=== PATIENT | female | born 1985 | race Caucasian/White ===

== ENCOUNTER 2016-07-21 10:27 | Emergency (ER) | payer OTHER ==
[~2016-07-21] VITALS: Wt 64.0 kg
[~2016-07-21 10:27] MED LIST: BENZ100C70 PO; CYCL-319 PO; FLUC150T17 PO; HYDR-3498 PO; IBUP-1542 PO; NAPR-260 PO; NAPR-688 PO
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
[2016-07-21 11:27] LABS: URINE BLOOD (Dip) POC Negative (NEGATIVE)
[2016-07-21] MEDS ORDERED: IBUPROFEN 600 MG TAB PO ONE (11:30)
--- NOTE | 2016-07-21 12:22 | RADRPT ---
PROCEDURE: XR thoracic spine. CLINICAL INDICATION: Back pain TECHNIQUE: AP and lateral radiographs of the thoracic spine are available for review. COMPARISON: None. FINDINGS: . The thoracic spine is normal in mineralization, architecture and alignment. No fractures or osseous lesions are identified. The disk spaces are unremarkable. The soft tissues are unremarkable. IMPRESSION: Unremarkable examination. RPTAT: HGDB .Hiram Timmons MD, MD Date Time Electronically viewed and signed by .Hiram Timmons MD, on 07/21/2016 12:21 .B/
[2016-07-21] MEDS ORDERED: NAPR-260 PO (12:44)
== END 2016-07-21 12:48 | disposition home or self-care (01) ==
LOC: FTE 10:27
DX: M54.6 Pain in thoracic spine (principal)
CPT/HCPCS: 72072; 81003; Z7610

== ENCOUNTER 2016-12-20 00:08 | Emergency (ER) | payer OTHER ==
[~2016-12-20] VITALS: Ht 160 cm; Wt 65.5 kg
[2016-12-20 00:12] VITALS: Ht 160 cm; Wt 65.5 kg
[2016-12-20] MEDS ORDERED: CYCLOBENZAPRINE 10 MG TAB PO ONE (02:30)
[2016-12-20 03:01] LABS: URINE BLOOD (Dip) POC Negative (NEGATIVE)
--- NOTE | 2016-12-20 03:26 | ERD ---
ER Documentation Chief Complaint Date/Time DATE: 12/20/16 TIME: 03:26 Chief Complaint BACK PAIN X 3 WEEKS; NO INJURY REPORTED; CONSTIPATION; HX OF FIBROIDS HPI 31-year-old female back pain for 3 weeks. No injury noted. She says she hurt when she bent over. No fevers no chills. No nausea or vomiting. No bowel or bladder incontinence. No other current complaints. Pain is mild to moderate in sensation ROS All systems reviewed and are negative except as per history of present illness. Medications Home Meds Active Scripts Naproxen* (Naprosyn*) 500 Mg Tablet, 500 MG PO BID Y for PAIN AND/OR INFLAMMATION, #30 TAB Prov:SKYLA SHERMAN PA-C 07/21/16 Naproxen* (Naprosyn*) 500 Mg Tablet, 500 MG PO BID, #20 TAB Prov:ALBER GUERRERO 03/19/16 Benzonatate* (Tessalon Perle*) 100 Mg Capsule, 100 MG PO TID, #20 CAP Prov:ALBER GUERRERO 03/19/16 Ibuprofen* (Motrin*) 600 Mg Tab, 600 MG PO Q6, #20 TAB Prov:LATOYA PARRISH PA-C 01/17/16 Cyclobenzaprine Hcl* (Cyclobenzaprine Hcl*) 10 Mg Tablet, 10 MG PO TID, #15 TAB Prov:RALPH MEAD PA-C 07/25/15 Naproxen* (Naproxen*) 500 Mg Tablet, 500 MG PO BID Y for PAIN, #30 TAB Prov:RALPH MEAD PA-C 07/25/15 Hydrocodone Bit-Acetaminophen* ([place]*) 5-325 Mg Tab, 1 TAB PO Q6 Y for PAIN, # 7 TAB Prov:RALPH MEAD PA-C 07/25/15 Fluconazole* (Diflucan*) 150 Mg Tablet, 150 MG PO ONCE, #1 TAB Prov:LATOYA PARRISH PA-C 07/20/15 Allergies Allergies: Coded Allergies: No Known Allergy (Unverified , 07/25/15) PMhx/Soc History of Surgery: No Anesthesia Reaction: No Hx Neurological Disorder: No Hx Respiratory Disorders: No Hx Cardiac Disorders: No Hx Miscellaneous Medical Probl: No Hx Alcohol Use: No Hx Substance Use: No Hx Tobacco Use: No Physical Exam Vitals Vital Signs Date Time Temp Pulse Resp B/P Pulse Ox O2 Delivery O2 Flow Rate FiO2 12/20/16 00:12 95.4 72 20 115/68 100 Physical Exam Const: [] Head: Atraumatic Eyes: Normal Conjunctiva ENT: Normal External Ears, Nose and Mouth. Neck: Full range of motion..~ No meningismus. Resp: Clear to auscultation bilaterally Cardio: Regular rate and rhythm, no murmurs Abd: Soft, non tender, non distended. Normal bowel sounds Skin: No petechiae or rashes Back: No midline or flank tenderness Ext: No cyanosis, or edema Neur: Awake and alert Psych: Normal Mood and Affect Results 24 hrs Laboratory Tests Test 12/20/16 03:05 Bedside Urine pH (LAB) 5.5 Bedside Urine Protein (LAB) Negative Bedside Urine Glucose (UA) Negative Bedside Urine Ketones (LAB) Negative Bedside Urine Blood Negative Bedside Urine Nitrite (LAB) Negative Bedside Urine Leukocyte Esterase (L Negative Current Medications Medications (Trade) Dose Ordered Sig/Nisha Route PRN Reason Start Time Stop Time Status Last Admin Dose Admin Cyclobenzaprine HCl (Flexeril) 10 mg ONCE ONCE PO 12/20/16 02:30 12/20/16 02:31 DC 12/20/16 02:50 Procedures/MDM Patient's musculoskeletal symptoms have stabilized while they have been evaluated in the department and are appropriate for outpatient work up. No evidence of cauda equina, cord compression, infiltrative, or infectious etiology. X-ray LS-Spine 3V Interpreted by me: Bones: No fracture, or lytic lesions Joints: No dislocation Foreign body: None Departure Diagnosis: Primary Impression: Back pain Back pain location: low back pain Chronicity: acute Back pain laterality: midline Sciatica presence: without sciatica Qualified Code: M54.5 - Acute midline low back pain without sciatica Condition: Stable BARRERA TORREZ Dec 20, 2016 03:26
[2016-12-20] MEDS ORDERED: CYCL-319 PO (03:36)
[2016-12-20 04:32] VITALS: BP 129/87; PULSE 84; RESP 18
--- NOTE | 2016-12-20 04:50 | RADRPT ---
PROCEDURE: XR Lumbar Spine. CLINICAL INDICATION: Pain. TECHNIQUE: X-ray of the lumbar spine were performed including AP, lateral, and coned L5-S1 views w as performed. COMPARISON: No prior studies are available for comparison. FINDINGS: Vertebral body stature and alignment maintained. There is no evidence of fracture or subluxation. IMPRESSION: No evidence of compression fracture. RPTAT: HIKT .Milo Escobar MD, MD Date Time Electronically viewed and signed by .Milo Escobar MD, on 12/20/2016 04:49 .T/
== END 2016-12-20 04:33 | disposition home or self-care (01) ==
LOC: E/R 00:08
DX: M54.5 Low back pain (principal)
CPT/HCPCS: 72100; 81003; Z7502; Z7610

== ENCOUNTER 2017-04-05 20:34 | Emergency (ER) | payer OTHER ==
[~2017-04-05] VITALS: Ht 157.5 cm; Wt 66.0 kg
[2017-04-05 20:42] VITALS: Ht 157.5 cm; Wt 66.0 kg
[2017-04-05] MEDS ORDERED: KETOROLAC 30 MG INJ IV STA (22:33)
--- NOTE | 2017-04-05 23:40 | RADRPT ---
PROCEDURE: US Pelvis CLINICAL INDICATION: Pain. TECHNIQUE: Sonographic evaluation of the pelvis was performed utilizing both transabdominal and tr ansvaginal technique. Images were reviewed on the high-resolution PACS workstation. COMPARISON: 03/19/2016 FINDINGS: Uterus is mildly prominent measuring 8.3 x 5 x 8.1 cm. There is partially calcified mass compatible with a fibroid in the left lateral myometrium there is a 2.4 x 1.8 x 1.4 cm. The endometrium is thin and normal measuring 9.8 mm in diameter. The right ovary measures 2.8 x 1.5 x 1.7 cm. The left ovary measures 4.1 x 1.8 x 2.4 cm. The ovari es are symmetric in size, echogenicity, and morphology. Color doppler vascular flow is demonstrated to both ovaries. There are no adnexal masses. There is no free fluid in the pelvis. IMPRESSION: 1. Primary uterus is redemonstrated fibroid within the left lateral uterine body, mildly increased in size. 2. Normal endometrium. 3. Normal examination of the ovaries. RPTAT: HMVK .Dhruv Guerrero MD, MD Date Time Electronically viewed and signed by .Dhruv Guerrero MD, MD on 04/05/2017 23:40 .K/
[2017-04-05] MEDS ORDERED: NAPR-260 PO (23:55)
--- NOTE | 2017-04-05 23:55 | ERD ---
ER Documentation Chief Complaint Chief Complaint Pelvic pain, left-sided, x 2 days HPI The patient is a 31-year-old female who presents to the Emergency Department with complaint of left-sided pelvic pain for the past 2 days. The patient reports that her pain was [id number], and constant since initial presentation. It is aching in nature. She denies any exacerbating or alleviating factors. Denies fevers, sweats, chills, nausea, vomiting, diarrhea. Denies vaginal bleeding or new vaginal discharge. Denies dysuria, hematuria, flank pain, polyuria. Denies any trauma to the area, or foreign body insertion. Last menstrual period was 15 days ago, and normal. Patient notes a history of similar symptoms in the past, which she was advised is secondary to fibroid. However, she has not had the pain for some time, and therefore presents today for evaluation. ROS All systems reviewed and are negative except as per history of present illness. Medications Home Meds Active Scripts Loratadine* (Loratadine*) 10 Mg Tablet, 10 MG PO DAILY, #30 TAB Prov:GWYN JURADO PA-C 04/05/17 Fluticasone Propionate (Flonase Allergy Relief) 9.9 Ml [place].susp, 1 SPRAY NASAL DAILY, #1 BOTTLE TO EACH NOSTRIL Prov:GWYN JURADO PA-C 04/05/17 Naproxen* (Naprosyn*) 500 Mg Tablet, 500 MG PO BID Y for PAIN AND/OR INFLAMMATION, #30 TAB Prov:GWYN JURADO PA-C 04/05/17 Cyclobenzaprine Hcl* (Cyclobenzaprine Hcl*) 10 Mg Tablet, 10 MG PO TID, #15 TAB Prov:BARRERA TORREZ 12/20/16 Naproxen* (Naprosyn*) 500 Mg Tablet, 500 MG PO BID Y for PAIN AND/OR INFLAMMATION, #30 TAB Prov:SKYLA SHERMAN PA-C 07/21/16 Naproxen* (Naprosyn*) 500 Mg Tablet, 500 MG PO BID, #20 TAB Prov:ALBER GUERRERO 03/19/16 Benzonatate* (Tessalon Perle*) 100 Mg Capsule, 100 MG PO TID, #20 CAP Prov:ALBER GUERRERO 03/19/16 Ibuprofen* (Motrin*) 600 Mg Tab, 600 MG PO Q6, #20 TAB Prov:LATOYA PARRISH PA-C 01/17/16 Cyclobenzaprine Hcl* (Cyclobenzaprine Hcl*) 10 Mg Tablet, 10 MG PO TID, #15 TAB Prov:RALPH MEAD PA-C 07/25/15 Naproxen* (Naproxen*) 500 Mg Tablet, 500 MG PO BID Y for PAIN, #30 TAB Prov:RALPH MEAD PA-C 07/25/15 Hydrocodone Bit-Acetaminophen* ([place]*) 5-325 Mg Tab, 1 TAB PO Q6 Y for PAIN, # 7 TAB Prov:RALPH MEAD PA-C 07/25/15 Fluconazole* (Diflucan*) 150 Mg Tablet, 150 MG PO ONCE, #1 TAB Prov:LATOYA PARRISH PA-C 07/20/15 Allergies Allergies: Coded Allergies: No Known Allergy (Unverified , 07/25/15) PMhx/Soc History of Surgery: Yes (c/s x 2) Anesthesia Reaction: No Hx Neurological Disorder: No Hx Respiratory Disorders: No Hx Cardiac Disorders: No Hx Miscellaneous Medical Probl: Yes (fibroids) Hx Alcohol Use: No Hx Substance Use: No Hx Tobacco Use: No Smoking Status: Never smoker Physical Exam Vitals Vital Signs Date Time Temp Pulse Resp B/P Pulse Ox O2 Delivery O2 Flow Rate FiO2 04/06/17 00:30 97.9 73 17 100/60 99 Room Air 04/05/17 20:42 97.0 77 20 119/64 100 Physical Exam GENERAL: Well-developed, well-nourished, in no acute distress. HEENT: Head is normocephalic, atraumatic. No scleral pallor or icterus. Conjunctiva pink. Moist mucous membranes. NECK: Supple. RESPIRATORY: Lungs are clear to auscultation bilaterally. Equal breath sounds. Normal expiratory effort. CARDIOVASCULAR: Regular rate and rhythm. S1 and S2 normal. GASTROINTESTINAL: Abdomen is soft, nontender, and nondistended. No guarding, no rebound tenderness. Normal bowel sounds. FLANK: No CVA tenderness. BACK: No midline tenderness. GENITOURINARY: Normal external genitalia. No abnormal discharge, no bleeding. No lesions. EXTREMITIES: No clubbing, cyanosis, or edema. Normal skin perfusion. Moving all extremities. No focal swelling or erythema. Distal pulses are palpable, 2+ bilaterally. Capillary refill is less than 2 seconds. NEUROLOGIC: The patient is alert, awake, and oriented x 3. INTEGUMENT: Skin is clean, dry and intact. No rashes, lesions or petechiae present. PSYCHIATRIC: Appropriate; Cooperative. Result Diagram: 04/05/17223904/05/172239 Results 24 hrs Laboratory Tests Test 04/05/17 22:40 White Blood Count 9.810^3/ul Red Blood Count 4.4410^6/ul Hemoglobin 12.0g/dl Hematocrit 38.9% Mean Corpuscular Volume 87.6fl Mean Corpuscular Hemoglobin 27.0pg Mean Corpuscular Hemoglobin Concent 30.8g/dl Red Cell Distribution Width 13.4% Platelet Count 01040^3/UL Mean Platelet Volume 11.8fl Neutrophils % 74.9% Lymphocytes % 16.6% Monocytes % 6.0% Eosinophils % 1.7% Basophils % 0.4% Nucleated Red Blood Cells % 0.0/100WBC Neutrophils # 7.410^3/ul Lymphocytes # 1.610^3/ul Monocytes # 0.610^3/ul Eosinophils # 0.210^3/ul Basophils # 0.010^3/ul Nucleated Red Blood Cells # 0.010^3/ul Prothrombin Time 11.9Sec Prothrombin Time Ratio 0.9 INR International Normalized Ratio 0.88 Activated Partial Thromboplast Time 27.7Sec Urine Color STRAW Urine Clarity CLEAR Urine pH 5.0 Urine Specific [place] 1.006 Urine Ketones NEGATIVEmg/dL Urine Nitrite NEGATIVEmg/dL Urine Bilirubin NEGATIVEmg/dL Urine Urobilinogen NEGATIVEmg/dL Urine Leukocyte Esterase NEGATIVELeu/ul Urine Hemoglobin NEGATIVEmg/dL Urine Glucose NEGATIVEmg/dL Urine Total Protein NEGATIVEmg/dl Sodium Level 142mmol/L Potassium Level 3.9mmol/L Chloride Level 105mmol/L Carbon Dioxide Level 28mmol/L Anion Gap 13 Blood Urea Nitrogen 10mg/dl Creatinine 0.77mg/dl Glucose Level 95mg/dl Calcium Level 9.3mg/dl Total Bilirubin 0.1mg/dl Direct Bilirubin 0.00mg/dl Indirect Bilirubin 0.1mg/dl Aspartate Amino Transf (AST/SGOT) 21IU/L Alanine Aminotransferase (ALT/SGPT) 37IU/L Alkaline Phosphatase 74IU/L Total Protein 8.3g/dl Albumin 4.4g/dl Globulin 3.90g/dl Albumin/Globulin Ratio 1.12 Lipase 130U/L Current Medications Medications (Trade) Dose Ordered Sig/Nisha Route PRN Reason Start Time Stop Time Status Last Admin Dose Admin Ketorolac Tromethamine (Toradol) 30 mg ONCE STAT IV 04/05/17 22:33 04/05/17 22:35 DC 04/05/17 23:16 Procedures/MDM DIAGNOSTIC TESTS AND INTERPRETATION: PROCEDURE: US Pelvis CLINICAL INDICATION: Pain. TECHNIQUE: Sonographic evaluation of the pelvis was performed utilizing both transabdominal and transvaginal technique. Images were reviewed on the high- resolution PACS workstation. COMPARISON: 03/19/2016 FINDINGS: Uterus is mildly prominent measuring 8.3 x 5 x 8.1 cm. There is partially calcified mass compatible with a fibroid in the left lateral myometrium there is a 2.4 x 1.8 x 1.4 cm. The endometrium is thin and normal measuring 9.8 mm in diameter. The right ovary measures 2.8 x 1.5 x 1.7 cm. The left ovary measures 4.1 x 1.8 x 2.4 cm. The ovaries are symmetric in size, echogenicity, and morphology. Color doppler vascular flow is demonstrated to both ovaries. There are no adnexal masses. There is no free fluid in the pelvis. IMPRESSION: 1. Primary uterus is redemonstrated fibroid within the left lateral uterine body, mildly increased in size. 2. Normal endometrium. 3. Normal examination of the ovaries. .Dhruv Guerrero MD, MD Date Time Electronically viewed and signed by .Dhruv Guerrero MD, on 04/05/2017 23:40 EMERGENCY DEPARTMENT COURSE: The patient was stable throughout the ED course. IV access established by nursing staff. Laboratory testing and ultrasound imaging performed. Toradol administered. On reevaluation, the patient reports no new complaints, and resolution of pain. MEDICAL DECISION MAKING: This is a 31-year-old female presenting to the Emergency Department with left-sided pelvic pain. She had no significant abnormalities noted on physical examination, and vital signs were stable. Abdominal examination benign, with no peritoneal signs. No abnormal vaginal bleeding, lesions or discharge was noted. The differential diagnosis includes, but is not limited to, ectopic , endometritis, PID, TOA, cervicitis, endometriosis, dysmenorrhea, hemorrhage/rupture of ovarian cyst, adnexal torsion , ovarian torsion, mittelschmerz, vaginitis, vaginosis, trichomonas, cystitis, pyelonephritis, ureterolithiasis, gastroenteritis, appendicitis, bowel obstruction, diverticulitis, IBD, IBS, hernia, AAA, ischemic bowel. No significant laboratory abnormalities were noted. Ultrasound performed revealed a partially calcified mass, compatible with a fibroid, in the left lateral myometrium there is a 2.4 x 1.8 x 1.4 cm. Otherwise, ovaries were normal, with normal color doppler vascular flow demonstrated. No adnexal masses. No free fluid. The patient's condition improved during their stay after the administration of medications and serial evaluations with stable vital signs. On re-evaluation, the patient reports no new complaints. Upon my review and interpretation of the patient's presentation, clinical data, and overall ER course, I believe the patient's symptoms are most consistent with pelvic pain, likely secondary to fibroid. At this time, the patient is in stable condition and therefore can be discharged home with prescription for Naproxen and strict return precautions for signs of deteriorating or worsening condition. Patient also requested a medication refill of her Flonase and Loratadine, which will be provided. The patient is advised to follow up with her primary medical provider within 2- 3 days for reevaluation and further management, or return to the ER sooner for any new or worsening symptoms. I shared all laboratory and diagnostic imaging studies with the patient at length and in great detail, and the patient verbally understands and agrees with the plan for further observation and care as an outpatient. At the time of discharge, all questions were answered. Departure Diagnosis: Primary Impression: Pelvic pain Additional Impressions: Fibroids Uterine leiomyoma location: unspecified location Qualified Code: D25.9 - Uterine leiomyoma, unspecified location Encounter for medication refill Condition: Stable Patient Instructions: Pelvic Pain, Unknown Cause, Taking Medicine Safely, Uterine Fibroids, What Are Fibroids? Additional Instructions: Follow up with your CERTIFIED SURGICAL TECHNOLOGIST in 2-3 days for reevaluation and further management. Please bring a copy of your results. Return to the ED for any new or worsening symptoms. GWYN JURADO PA-C Apr 05, 2017 23:55
[2017-04-05] MEDS ORDERED: FLUT9.9S NASAL (23:56)
[2017-04-05] MEDS ORDERED: LORA10TA3 PO (23:56)
[2017-04-06 00:30] VITALS: BP 100/60; PULSE 73; RESP 17; TEMP 97.9
== END 2017-04-06 00:30 | disposition home or self-care (01) ==
LOC: FTE 20:34
DX: D25.9 Leiomyoma of uterus, unspecified (principal); Z76.0 Encounter for issue of repeat prescription
CPT/HCPCS: 36415; 76856; 80053; 81003; 83690; 85025; 85610; 85730; 87086; 96374; J1885; Z7502

== ENCOUNTER 2017-08-08 09:48 | Emergency (ER) | END 2017-08-08 13:03 | disposition home or self-care (01) ==

== ENCOUNTER 2017-10-13 19:19 | Emergency (ER) | END 2017-10-13 21:26 | disposition home or self-care (01) ==

== ENCOUNTER 2018-04-23 06:33 | Emergency (ER) | END 2018-04-23 09:57 | disposition home or self-care (01) ==

== ENCOUNTER 2018-09-18 13:06 | Emergency (ER) | payer OTHER ==
[~2018-09-18] VITALS: Ht 167.6 cm; Wt 70.2 kg
[~2018-09-18 13:06] MED LIST changes: -BENZ100C70 PO; -CYCL-319 PO; -FLUC150T17 PO; -HYDR-3498 PO; -IBUP-1542 PO; +IBUP800T48 PO; -NAPR-260 PO; -NAPR-688 PO
[2018-09-18 13:09] VITALS: BP 130/76; PULSE 76; RESP 18; Ht 167.6 cm; Wt 70.2 kg
[2018-09-18] MEDS ORDERED: IBUPROFEN 800 MG TAB PO ONE (14:00)
[2018-09-18] MEDS ORDERED: NAPR-985 PO (14:14)
--- NOTE | 2018-09-18 14:28 | ERD ---
ER Documentation Chief Complaint Chief Complaint R.arm/shoulder pain x 1 week post moving heavy patient HPI 33-year-old female presenting with right arm pain. Patient had this pain for the last week and is after she moved a heavy item at home. Patient is right- hand dominant. Pain is located over the lateral portion of the elbow. There is no pain with movement. Denies other medical problems. NKDA. Surgical history . Social history denies ROS All systems reviewed and are negative except as per history of present illness. Medications Home Meds Active Scripts Naproxen* (Naprosyn*) 500 Mg Tablet, 500 MG PO BID PRN for PAIN AND/OR INFLAMMATION, #30 TAB Prov:RALPH MEAD PA-C 09/18/18 Ibuprofen* (Motrin*) 800 Mg Tab, 800 MG PO Q6H PRN for PAIN AND OR ELEVATED TEMP, #30 TAB Prov:SALVADOR CODY MD 07/17/18 Allergies Allergies: Coded Allergies: No Known Allergy (Unverified , 07/17/18) PMhx/Soc History of Surgery: Yes (c/s x 2) Anesthesia Reaction: No Hx Neurological Disorder: No Hx Respiratory Disorders: No Hx Cardiac Disorders: No Hx Psychiatric Problems: No Hx Miscellaneous Medical Probl: Yes (fibroids) Hx Alcohol Use: No Hx Substance Use: No Hx Tobacco Use: No Smoking Status: Never smoker FmHx Family History: No diabetes, No coronary disease, No other Physical Exam Vitals Vital Signs Date Temp Pulse Resp B/P (MAP) Pulse Ox O2 O2 Flow FiO2 Time Delivery Rate 09/18/18 98.0 76 18 130/76 99 13:09 (94) Physical Exam GENERAL: The patient is well-appearing, well-nourished, in no acute distress CHEST: Clear to auscultation bilaterally. There are no rales, wheezes or rhonchi. HEART: Regular rate and rhythm. No murmurs, clicks, rubs or gallops. EXTREMITIES:TTP to right elbow. No deformity. Normal ROM. Strength 5/5 NEUROLOGIC: Alert and oriented. Cranial nerves II through XII intact. Motor strength in all 4 extremities with 5 out of 5 strength. Sensation grossly intact. Normal speech and gait. SKIN: There is no apparent rash or petechiae. The skin is warm and dry. Results 24 hrs Current Medications Medications Dose Sig/Nisha Start Time Status Last (Trade) Ordered Route PRN Stop Time Admin Dose Reason Admin Ibuprofen 800 mg ONCE ONCE 09/18/18 DC 09/18/18 (Motrin) PO 14:00 13:39 09/18/18 14:01 Procedures/MDM DIAGNOSTIC IMAGING REPORT Patient: SHRUTHI GARCES : 1985 Age: 33 Sex: F MR #: [id number] DOS: 09/18/18 1332 Ordering MD: BRANDO MEAD PA-C Location: [facility] Room/Bed: PROCEDURE: XR Right Elbow. CLINICAL INDICATION: Pain TECHNIQUE: AP, lateral and oblique views of the right elbow performed. COMPARISON: None. FINDINGS: There is normal mineralization and alignment. No fracture or osseous lesion is identified. There is no significant joint space narrowing. The soft tissues are unremarkable. IMPRESSION: Unremarkable examination. DIAGNOSTIC IMAGING REPORT Patient: SHRUTHI GARCES : 1985 Age: 33 Sex: F MR #: [id number] DOS: 09/18/18 1332 Ordering MD: BRANDO MEAD PA-C Location: [facility] Room/Bed: PROCEDURE: XR right shoulder. CLINICAL INDICATION: Panel TECHNIQUE: AP Internal and external rotation views and transscapular Y-view of the right shoulder were performed. COMPARISON: None. FINDINGS: There is normal osseous mineralization and alignment. No acute fracture or osseous lesion is identified. There are normal joints without evidence of arthritis or dislocation. The soft tissues are unremarkable. IMPRESSION: Unremarkable right shoulder. MDM: 33-year-old female presenting with pain to right elbow. Patient's x-rays are within normal limits. Patient likely has muscular skeletal strain with tendinitis. Patient is recommended to refrain from excessive lifting and moving. Patient is discharged with supportive medications. All questions answered at discharge Departure Diagnosis: Primary Impression: Epicondylitis, lateral Condition: Stable Patient Instructions: Muscle Strain, Extremity, Tendonitis Referrals: COMMUNITY CLINICS YOU HAVE RECEIVED A MEDICAL SCREENING EXAM AND THE RESULTS INDICATE THAT YOU DO NOT HAVE A CONDITION THAT REQUIRES URGENT TREATMENT IN THE EMERGENCY DEPARTMENT. FURTHER EVALUATION AND TREATMENT OF YOUR CONDITION CAN WAIT UNTIL YOU ARE SEEN IN YOUR DOCTORS OFFICE WITHIN THE NEXT 1-2 DAYS. IT IS YOUR RESPONSIBILITY TO MAKE AN APPOINTMENT FOR FOLOW-UP CARE. IF YOU HAVE A PRIMARY DOCTOR --you should call your primary doctor and schedule an appointment IF YOU DO NOT HAVE A PRIMARY DOCTOR YOU CAN CALL OUR PHYSICIAN REFERRAL HOTLINE AT IF YOU CAN NOT AFFORD TO SEE A PHYSICIAN YOU CAN CHOSE FROM THE FOLLOWING [facility] CLINICS [facility] [address] [facility] [address] [facility] [address] [facility] [address] [facility]. [facility] [address] [facility]. [facility]. [address] Additional Instructions: FOLLOW UP WITH YOUR PRIMARY CARE PHYSICIAN TOMORROW.Return to this facility if you are not improving as expected. RALPH MEAD PA-C Sep 18, 2018 14:28
== END 2018-09-18 14:35 | disposition home or self-care (01) ==
LOC: FTE 13:06
DX: M77.11 Lateral epicondylitis, right elbow (principal)
CPT/HCPCS: 73030; 73080; Z7502; Z7610

== ENCOUNTER 2018-11-05 13:02 | Emergency (ER) | payer OTHER ==
[~2018-11-05] VITALS: Wt 75.0 kg
[~2018-11-05 13:02] MED LIST changes: +NAPR-985 PO
[2018-11-05 13:06] VITALS: BP 127/80; PULSE 69; RESP 18
[2018-11-05] MEDS ORDERED: IBUP-1542 PO (14:58)
[2018-11-05] MEDS ORDERED: IBUPROFEN 800 MG TAB PO ONE (15:00)
--- NOTE | 2018-11-05 15:01 | ERD ---
ER Documentation Chief Complaint Chief Complaint CHEST PAIN FOR THE PAST MONTH WITH MILD SOB. NO DISTRESS. NO DIAPHORESIS HPI Patient is a 33-year-old female with fibroids who presents with chest pain. She has left-sided chest pain and right-sided shoulder and arm pain. She says that she has shortness of breath as well. It started 1 month ago. The pain was worse today. She said that she tried "some pain med" but does not know what it was. The patient says the pain comes and goes. She does have a primary doctor. Upon review of old medical records this is the patient's 14th visit to the ER since 2013. ROS All systems reviewed and are negative except as per history of present illness. Medications Home Meds Active Scripts Ibuprofen* (Motrin*) 600 Mg Tab, 600 MG PO Q6H PRN for PAIN AND OR ELEVATED TEMP, #30 TAB Prov:SONAL HUTTON MD 11/05/18 Naproxen* (Naprosyn*) 500 Mg Tablet, 500 MG PO BID PRN for PAIN AND/OR INFLAMMATION, #30 TAB Prov:RALPH MEAD PA-C 09/18/18 Ibuprofen* (Motrin*) 800 Mg Tab, 800 MG PO Q6H PRN for PAIN AND OR ELEVATED TEMP, #30 TAB Prov:SALVADOR CODY MD 07/17/18 Allergies Allergies: Coded Allergies: No Known Allergy (Unverified , 07/17/18) PMhx/Soc History of Surgery: Yes (c/s x 2) Anesthesia Reaction: No Hx Neurological Disorder: No Hx Respiratory Disorders: No Hx Cardiac Disorders: No Hx Psychiatric Problems: No Hx Miscellaneous Medical Probl: Yes (fibroids) Hx Alcohol Use: No Hx Substance Use: No Hx Tobacco Use: No Smoking Status: Never smoker FmHx Family History: No coronary disease Physical Exam Vitals Vital Signs Date Temp Pulse Resp B/P (MAP) Pulse Ox O2 O2 Flow FiO2 Time Delivery Rate 11/05/18 98.5 69 18 127/80 98 13:06 (96) Physical Exam Const: No acute distress Head: Atraumatic Eyes: Normal Conjunctiva ENT: Normal External Ears, Nose and Mouth. Neck: Full range of motion. No meningismus. Resp: Clear to auscultation bilaterally Cardio: Regular rate and rhythm, no murmurs, chest wall pain with palpation which reproduces pain Abd: Soft, non tender, non distended. Normal bowel sounds Skin: No petechiae or rashes Back: No midline or flank tenderness Ext: No cyanosis, or edema Neur: Awake and alert Psych: Normal Mood and Affect Results 24 hrs Laboratory Tests Test 11/05/18 14:22 POC Beta HCG, Qualitative NEGATIVE Current Medications Medications Dose Sig/Nisha Start Time Status Last (Trade) Ordered Route PRN Stop Time Admin Dose Reason Admin Ibuprofen 800 mg ONCE ONCE 11/05/18 11/05/18 (Motrin) PO 15:00 11/05/18 14:52 15:01 Procedures/MDM EKG read by me: Rate/Rhythm: Regular rate and rhythm at a rate of 68 Intervals: Normal Impression: No evidence of ischemia or arrhythmia Chest x-ray negative per radiology. test is negative. Patient is a 33-year-old female who presents with chest pain shortness of breath. She has no cardiac risk factors. Her EKG is normal. Her chest x-ray is negative. Her test is negative. At this point I doubt acute coronary syndrome, pneumonia, pneumothorax, pulmonary embolism, or aortic dissection. Her chest wall pain is reproduced with palpation. She will be given a prescription for ibuprofen. She should follow-up with her primary doctor within 24 to 48 hours. I do not believe she requires further work-up or admission in the hospital at this time. Copy of the chest x-ray report was given to the patient prior to discharge. Departure Diagnosis: Primary Impression: Chest pain Chest pain type: unspecified Qualified Codes: R07.9 - Chest pain, unspecified Condition: Fair Patient Instructions: Chest Pain, Uncertain Cause Referrals: Your doctor Additional Instructions: Call your primary care doctor TOMORROW for an appointment during the next 1-2 days.See the doctor sooner or return here if your condition worsens before your appointment time. SONAL HUTTON MD Nov 05, 2018 15:01
== END 2018-11-05 15:56 | disposition home or self-care (01) ==
LOC: E/R 13:02
DX: R07.9 Chest pain, unspecified (principal)
CPT/HCPCS: 71045; 81025; 93005; Z7502; Z7610

== ENCOUNTER 2018-11-21 10:07 | Emergency (ER) | payer OTHER ==
[~2018-11-21] VITALS: Ht 157.5 cm; Wt 72.2 kg
[~2018-11-21 10:07] MED LIST changes: +IBUP-1542 PO
[2018-11-21 10:10] VITALS: BP 134/64; PULSE 73; RESP 18; Ht 157.5 cm; Wt 72.2 kg
[2018-11-21] MEDS ORDERED: KETOROLAC 60 MG INJ IM STA (10:29)
--- NOTE | 2018-11-21 10:56 | ERD ---
ER Documentation Chief Complaint Chief Complaint right arm pain x 1 month HPI This is a 33-year-old female presents ED with complaints of right elbow and forearm pain x1 month. Patient denies any fall or injury to account for pain. Patient states that she works as a [employer] and does a lot of heavy lifting patients. Patient states that she has been seen by her primary care physician and has had x-rays performed as well as blood work which was all unremarkable. Patient has not been seen by specialist. Denies tingling, numbness, lack sensation, weakness. ROS All systems reviewed and are negative except as per history of present illness. Medications Home Meds Active Scripts Ibuprofen* (Motrin*) 600 Mg Tab, 600 MG PO Q6H PRN for PAIN AND OR ELEVATED TEMP, #30 TAB Prov:SONAL HUTTON MD 11/05/18 Naproxen* (Naprosyn*) 500 Mg Tablet, 500 MG PO BID PRN for PAIN AND/OR INFLAMMAT ION, #30 TAB Prov:RALPH MEAD PA-C 09/18/18 Ibuprofen* (Motrin*) 800 Mg Tab, 800 MG PO Q6H PRN for PAIN AND OR ELEVATED TEMP, #30 TAB Prov:SALVADOR CODY MD 07/17/18 Allergies Allergies: Coded Allergies: No Known Allergy (Unverified , 07/17/18) PMhx/Soc History of Surgery: Yes (c/s x 2) Anesthesia Reaction: No Hx Neurological Disorder: No Hx Respiratory Disorders: No Hx Cardiac Disorders: No Hx Psychiatric Problems: No Hx Miscellaneous Medical Probl: Yes (fibroids, thyroid) Hx Alcohol Use: No Hx Substance Use: No Hx Tobacco Use: No Physical Exam Vitals Vital Signs Date Temp Pulse Resp B/P (MAP) Pulse Ox O2 O2 Flow FiO2 Time Delivery Rate 11/21/18 97.8 73 18 134/64 99 10:10 (87) Physical Exam Const: No acute distress Head: Atraumatic Ext: No cyanosis, or edema Upper Extremity -right Skin: No laceration, or evidence of external trauma Compartments: Soft Motor: Full active range of motion shoulder/elbow/wrist/hand Sensation: Intact shoulder/pinky/middle finger/thumb web space Bones: Mild tenderness palpation along the lateral epicondyle Snuffbox: Nontender Joints: No effusion Pulses/Perfusion: 2+ radial, Capillary refill < 2 seconds Neur: Awake and alert Psych: Normal Mood and Affect Results 24 hrs Laboratory Tests Test 11/21/18 10:46 POC Beta HCG, Qualitative NEGATIVE Current Medications Medications Dose Sig/Nisha Start Time Status Last (Trade) Ordered Route PRN Stop Time Admin Dose Reason Admin Ketorolac 60 mg ONCE STAT 11/21/18 DC Tromethamine IM 10:29 (Toradol) 11/21/18 10:31 Procedures/MDM ER COURSE: The patient was given [Toradol The medication was well tolerated and the patient reports improvement in symptoms. The patient was stable throughout ED course. I kept the patient and/or family informed of laboratory and diagnostic imaging results throughout the emergency room course. The patient was promptly evaluated and a treatment plan was devised based on H&P and other data. This plan was discussed with the patient who agreed and had no further questions or concerns prior to discharge. MEDICAL DECISION MAKIN-year-old female presents ED with complaints of right lateral elbow pain and right forearm pain x1 month. Physical examination is remarkable for tenderness along the right lateral epicondyle. This is likely lateral epicondylitis. Patient was advised to follow-up with her primary care physician to discuss physical therapy among other options. advised ice intermittently and get a tennis elbow brace at local drug store. History and physical examination other data not consistent with emergent processes including but not limited to fracture, dislocation, tendon rupture, ischemia, neurovascular injury, compartment syndrome, septic joint, avascular necrosis, osteomyelitis, necrotizing fasciitis, septic joint, septic arthritis, or other emergent co nditions. Patient's vitals are stable and can be managed outpatient with close follow-up. Advised patient to follow-up with primary care in the next 48 hours. Return to ED with any worsening symptoms. DISPOSITION PLAN: We discussed follow up with the patient's primary care doctor within 24 to 48 hours. Patient counseled regarding my diagnostic impression and care plan. Prior to discharge all questions answered. Pt agrees with treatment plan and understands strict return precautions. Precautionary instructions provided including instructions to return to the ER if not improving or for any worsening or changing symptoms or concerns. SPECIALIST FOLLOW UP RECOMMENDED: physical therapy Patient has been advised to follow up with primary care in 1-2 days. Disclaimer: Inadvertent spelling and grammatical errors are likely due to EHR/dictation software use and do not reflect on the overall quality of patient care. Also, please note that the electronic time recorded on this note does not necessarily reflect the actual time of the patient encounter. Departure Diagnosis: Primary Impression: Right elbow pain Condition: Stable Patient Instructions: What is Tennis Elbow?, Tennis Elbow Referrals: COMMUNITY CLINICS YOU HAVE RECEIVED A MEDICAL SCREENING EXAM AND THE RESULTS INDICATE THAT YOU DO NOT HAVE A CONDITION THAT REQUIRES URGENT TREATMENT IN THE EMERGENCY DEPARTMENT. FURTHER EVALUATION AND TREATMENT OF YOUR CONDITION CAN WAIT UNTIL YOU ARE SEEN IN YOUR DOCTORS OFFICE WITHIN THE NEXT 1-2 DAYS. IT IS YOUR RESPONSIBILITY TO MAKE AN APPOINTMENT FOR FOLOW-UP CARE. IF YOU HAVE A PRIMARY DOCTOR --you should call your primary doctor and schedule an appointment IF YOU DO NOT HAVE A PRIMARY DOCTOR YOU CAN CALL OUR PHYSICIAN REFERRAL HOTLINE AT IF YOU CAN NOT AFFORD TO SEE A PHYSICIAN YOU CAN CHOSE FROM THE FOLLOWING COUNT INCLUDES THE [facility] CLINICS [facility] [address] [facility] [place]. [facility] [address] [facility] [facility] [address] [facility] [address] [facility] [address] [facility]. [facility] [address] Additional Instructions: Patient advised to return to the ED immediately for new or worsening symptoms. Patient advised to follow up with primary care provider in the next 24-48 hours. Patient verbalized understanding and agrees with treatment plan and course of action. If patient has no primary care they may follow up with one of the [facility] clinics listed on the following page or one of the options listed below [facility] + [facility] [address] [place] [address] or [facility] [address] [place] [address] or [facility] [address] [place] [address] KENNETH SPENCE PA-C Nov 21, 2018 10:56
== END 2018-11-21 11:09 | disposition home or self-care (01) ==
LOC: FTE 10:07
DX: M25.521 Pain in right elbow (principal)
CPT/HCPCS: 81025; 96372; J1885; Z7502

== ENCOUNTER 2018-12-02 15:41 | Emergency (ER) | payer OTHER ==
[~2018-12-02] VITALS: Ht 160 cm; Wt 70.0 kg
[2018-12-02 15:45] VITALS: Ht 160 cm; Wt 70.0 kg
[2018-12-02] MEDS ORDERED: ALPR0.25 PO (17:41)
[2018-12-02] MEDS ORDERED: ORA20G7 BUCCAL (17:43)
--- NOTE | 2018-12-02 17:45 | ERD ---
ER Documentation Chief Complaint Chief Complaint MOUTH SORES,TONGUE BLISTER? HPI 33-year-old female presents to ED complaining on tongue pain x1 day. She reports that she feels the "inside of her tongue" being painful and came to the ED today helps with me finding something on her tongue to cause the pain. He reports that the pain is worse when she talks and eats food. She denies any radiation of the pain and states that it is mostly on the right lateral aspect of her tongue. Reports the pain as 5 out of 10 intensity at worst and states that nothing makes it better. Denies a previous history of similar incidents. She also reports a lot of stress and anxiety with her children. And she is not sure if this could be the cause. ROS All systems reviewed and are negative except as per history of present illness. Medications Home Meds Active Scripts Benzocaine* (Orajel Maximum*) 1 Applic Gel, 1 APPLIC BUCCAL BID, #1 TUB Prov:HATTIE OLEA PA-C 12/02/18 Alprazolam* (Xanax*) 0.25 Mg Tablet, 0.25 MG PO Q8H PRN for ANXIETY, #7 TAB Prov:HATTIE OLEA PA-C 12/02/18 Ibuprofen* (Motrin*) 600 Mg Tab, 600 MG PO Q6H PRN for PAIN AND OR ELEVATED TEMP, #30 TAB Prov:SONAL HUTTON MD 11/05/18 Naproxen* (Naprosyn*) 500 Mg Tablet, 500 MG PO BID PRN for PAIN AND/OR INFLAMMATION, #30 TAB Prov:RALPH MEAD PA-C 09/18/18 Ibuprofen* (Motrin*) 800 Mg Tab, 800 MG PO Q6H PRN for PAIN AND OR ELEVATED TEMP, #30 TAB Prov:SALVADOR CODY MD 07/17/18 Allergies Allergies: Coded Allergies: No Known Allergy (Unverified , 07/17/18) PMhx/Soc History of Surgery: Yes (c/s x 2) Anesthesia Reaction: No Hx Neurological Disorder: No Hx Respiratory Disorders: No Hx Cardiac Disorders: No Hx Psychiatric Problems: No Hx Miscellaneous Medical Probl: Yes (fibroids, thyroid) Hx Alcohol Use: No Hx Substance Use: No Hx Tobacco Use: No FmHx Family History: No diabetes Physical Exam Vitals Vital Signs Date Temp Pulse Resp B/P (MAP) Pulse Ox O2 O2 Flow FiO2 Time Delivery Rate 12/02/18 98.2 64 18 111/62 99 Room Air 18:30 (78) 12/02/18 98.1 72 18 120/72 99 15:45 (88) Physical Exam Const: No acute distress Head: Atraumatic Eyes: Normal Conjunctiva ENT: Normal External Ears, Nose and Mouth. Tongue: no lesion present on tongue. Throat: pink and moist Neck: Full range of motion. Resp: Clear to auscultation bilaterally Cardio: Regular rate and rhythm, Abd: Soft, non tender, non distended. Skin: No petechiae or rashes Back: No midline or flank tenderness Ext: No cyanosis, or edema Neur: Awake and alert Psych: Normal Mood and Affect Procedures/MDM ED COURSE: The patient was stable throughout ED course. I kept the patient informed of laboratory and diagnostic imaging results throughout the ED course. PROCEDURES: none MEDICATIONS GIVEN: [None.] MEDICAL DECISION MAKING: Patient is a 33-year-old female complaining of pain in side of her tongue x1 day. On physical exam looking at the tongue I see no lesions or blisters or any causes of her tongue pain. After having her look for self using her iPhone camera as a mirror, we were unable to find any cause of her pain as well. She denies any chance of her burning her tongue with hot food or hot liquids. I have no obvious cause of her tongue pain at this time. She also reports feeling very anxious and stressed out with her children. 2 kids are running around the room not behaving themselves during the ED visit and it is obvious is stressing her out and she appears tired. I suggested that stress and anxiety can be a cause of her tongue pain that she is experiencing and she agreed with me that that could be the case. At this time I have low suspicion for herpes, aphthous ulcers, oral cancer, or other infectious causes, or an abscess. Vital signs were reviewed. Patient is afebrile. Patient was not hypoxic. Patient was hemodynamically stable. Patient was reassured and told to follow up with primary care for further care and management. PRESCRIPTION: orajel, Xanax DISCHARGE: At this time, patient is stable for discharge and outpatient management. I have instructed the patient to follow-up with his/her primary care physician in 1-2 days. I have discussed with the patient the possibility of needing to see a specialist for further workup and imaging studies if symptoms persist. I have instructed the patient to promptly return to the ER for any new or worsening symptoms including increased pain, fever, nausea, vomiting, weakness or LOC. The patient and/or family expressed understanding of and agreement with this plan. All questions were answered. Home care instructions were provided. Disclaimer: Inadvertent spelling and grammatical errors are likely due to EHR/dictation software use and do not reflect on the overall quality of patient care. Also, please note that the electronic time recorded on this note does not necessarily reflect the actual time of the patient encounter. Departure Diagnosis: Primary Impression: Anxiety Additional Impression: Tongue pain Condition: Fair Patient Instructions: Your Body's Response to Anxiety, Aphthous Ulcer Referrals: [facility] YOU HAVE RECEIVED A MEDICAL SCREENING EXAM AND THE RESULTS INDICATE THAT YOU DO NOT HAVE A CONDITION THAT REQUIRES URGENT TREATMENT IN THE EMERGENCY DEPARTMENT. FURTHER EVALUATION AND TREATMENT OF YOUR CONDITION CAN WAIT UNTIL YOU ARE SEEN IN YOUR DOCTORS OFFICE WITHIN THE NEXT 1-2 DAYS. IT IS YOUR RESPONSIBILITY TO MAKE AN APPOINTMENT FOR FOLOW-UP CARE. IF YOU HAVE A PRIMARY DOCTOR --you should call your primary doctor and schedule an appointment IF YOU DO NOT HAVE A PRIMARY DOCTOR YOU CAN CALL OUR PHYSICIAN REFERRAL HOTLINE AT IF YOU CAN NOT AFFORD TO SEE A PHYSICIAN YOU CAN CHOSE FROM THE FOLLOWING [facility] [address] [facility]. [facility] [address] [facility] [address] [facility] [address] [facility] [address] [facility] [facility]. [address] [facility]. [facility] YOU HAVE RECEIVED A MEDICAL SCREENING EXAM AND THE RESULTS INDICATE THAT YOU DO NOT HAVE A CONDITION THAT REQUIRES URGENT TREATMENT IN THE EMERGENCY DEPARTMENT. FURTHER EVALUATION AND TREATMENT OF YOUR CONDITION CAN WAIT UNTIL YOU ARE SEEN IN YOUR DOCTORS OFFICE WITHIN THE NEXT 1-2 DAYS. IT IS YOUR RESPONSIBILITY TO MAKE AN APPOINTMENT FOR FOLOW-UP CARE. IF YOU HAVE A PRIMARY DOCTOR --you should call your primary doctor and schedule and appointment IF YOU DO NOT HAVE A PRIMARY DOCTOR YOU CAN CALL OUR PHYSICIAN REFERRAL HOTLINE AT . IF YOU CAN NOT AFFORD TO SEE A PHYSICIAN YOU CAN CHOSE FROM THE FOLLOWING [facility] INSTITUTIONS: [facility] [address] [place] [address] [facility] [address] [place] [address] [facility] [address] [place] [address] Additional Instructions: Call your primary care doctor TOMORROW for an appointment during the next 1-2 days.See the doctor sooner or return here if your condition worsens before your appointment time. HATTIE OLAE PA-C Dec 02, 2018 17:45
[2018-12-02 18:30] VITALS: BP 111/62; PULSE 64; RESP 18
== END 2018-12-02 18:30 | disposition home or self-care (01) ==
LOC: FTE 15:41
DX: F41.9 Anxiety disorder, unspecified (principal)
CPT/HCPCS: 99283

== ENCOUNTER 2018-12-24 20:14 | Emergency (ER) | payer OTHER ==
[~2018-12-24] VITALS: Ht 157.5 cm; Wt 71.4 kg
[~2018-12-24 20:14] MED LIST changes: +ALPR0.25 PO; +ORA20G7 BUCCAL
[2018-12-24 20:34] VITALS: Ht 157.5 cm; Wt 71.4 kg
--- NOTE | 2018-12-24 23:04 | ERD ---
ER Documentation Chief Complaint Chief Complaint tongue pain x 2 weeks HPI 33-year-old female presents complaint of tongue pain for the past 2 weeks. States she is here before was given a cream does not help. Patient states that the tongue pain is constant nothing exacerbates it. Patient denies any difficulty breathing, difficulty swallowing, drooling, sore throat, fevers, chills, trismus, muffled voice. In addition states she has not gotten her period and. She thinks might be . ROS All systems reviewed and are negative except as per history of present illness. Medications Home Meds Active Scripts Benzocaine* (Orajel Maximum*) 1 Applic Gel, 1 APPLIC BUCCAL BID, #1 TUB Prov:HATTIE OLEA PA-C 12/02/18 Alprazolam* (Xanax*) 0.25 Mg Tablet, 0.25 MG PO Q8H PRN for ANXIETY, #7 TAB Prov:HATTIE OLEA PA-C 12/02/18 Ibuprofen* (Motrin*) 600 Mg Tab, 600 MG PO Q6H PRN for PAIN AND OR ELEVATED TEMP, #30 TAB Prov:SONAL HUTTON MD 11/05/18 Naproxen* (Naprosyn*) 500 Mg Tablet, 500 MG PO BID PRN for PAIN AND/OR INFLAMMATION, #30 TAB Prov:RALPH MEAD PA-C 09/18/18 Ibuprofen* (Motrin*) 800 Mg Tab, 800 MG PO Q6H PRN for PAIN AND OR ELEVATED TEMP, #30 TAB Prov:SALVADOR CODY MD 07/17/18 Allergies Allergies: Coded Allergies: No Known Allergy (Unverified , 07/17/18) PMhx/Soc History of Surgery: Yes () Anesthesia Reaction: No Hx Neurological Disorder: No Hx Respiratory Disorders: No Hx Cardiac Disorders: No Hx Psychiatric Problems: No Hx Miscellaneous Medical Probl: Yes (Uterine Fibroids;Thyroidism) Hx Alcohol Use: No Hx Substance Use: No Hx Tobacco Use: No Smoking Status: Never smoker FmHx Family History: No diabetes, No coronary disease, No other Physical Exam Vitals Vital Signs Date Temp Pulse Resp B/P (MAP) Pulse Ox O2 O2 Flow FiO2 Time Delivery Rate 12/24/18 98.2 72 18 125/71 100 20:34 (89) Physical Exam Const: No acute distress Head: Atraumatic Eyes: Normal Conjunctiva ENT: Normal External Ears, Nose and Mouth. Tongue is nonedematous erythematous with no lesions. Tonsils are nonedematous erythematous without exudate bilaterally. Uvula is midline. There are no peritonsillar masses noted. There are no lesions of the oral mucosa noted. Neck: Full range of motion. No meningismus. Resp: Clear to auscultation bilaterally Cardio: Regular rate and rhythm, no murmurs Abd: Soft, non tender, non distended. Normal bowel sounds Skin: No petechiae or rashes Back: No midline or flank tenderness Ext: No cyanosis, or edema Neur: Awake and alert Psych: Normal Mood and Affect Results 24 hrs Laboratory Tests Test 12/24/18 22:56 POC Beta HCG, Qualitative NEGATIVE Procedures/MDM MDM: Patient was advised that she needs to follow-up with an ENT as there is no abnormalities seen on physical exam and her pain is persisted despite previous treatment. Patient was given contact information for couple ENTs in her discharge packet. I have low suspicion for epiglottitis, peritonsilar abscess, ludwigs angina, leukoplakia, retropharyngeal abscess, or other emergent etiologies based on patients exam and history. At this time, patient is stable for discharge and outpatient management. I have instructed the patient to follow-up with his/her primary care physician in 1-2 days. I have discussed with the patient the possibility of needing to see a specialist for further workup and imaging studies if symptoms persist. I have instructed the patient to promptly return to the ER for any new or worsening symptoms including but not limited to increased pain, fever, nausea, vomiting, weakness or LOC. The patient and/or family expressed understanding of and agreement with this plan. All questions were answered. Home care instructions were provided. DISCLAIMER: Inadvertent spelling and grammatical errors are likely due to EHR/dictation software use and do not reflect on the overall quality of patient care. Also, please note that the electronic time recorded on this note does not necessarily reflect the actual time of the patient encounter. . Departure Diagnosis: Primary Impression: Tongue pain Additional Impression: test negative Condition: Stable ALDOBARRERA Dec 24, 2018 23:04
[2018-12-24 23:29] VITALS: BP 120/72; PULSE 66; RESP 18
== END 2018-12-24 23:29 | disposition home or self-care (01) ==
LOC: FTE 20:14
DX: K14.6 Glossodynia (principal); Z32.02 Encounter for pregnancy test, result negative
CPT/HCPCS: 81025; Z7502; 99282

== ENCOUNTER 2019-01-19 06:29 | Emergency (ER) | payer OTHER ==
[~2019-01-19] VITALS: Ht 160 cm; Wt 71.2 kg
[2019-01-19 06:32] VITALS: Ht 160 cm; Wt 71.2 kg
--- NOTE | 2019-01-19 10:39 | ERD ---
ER Documentation Chief Complaint Chief Complaint painful urination x1 day HPI 33-year-old otherwise healthy female presents to the ED complaining of 1 day of dysuria. She also reports urinary urgency or frequency. She denies any back or flank pain. No fevers. No nausea or vomiting. No abdominal pain. No history of urinary tract infections. She does report a history of fibroids but denies any vaginal bleeding or pelvic pain at this time. Currently not sexually active. ROS All systems reviewed and are negative except as per history of present illness. Medications Home Meds Active Scripts Ibuprofen* (Motrin*) 600 Mg Tab, 600 MG PO Q6, #30 TAB Prov:BARRERA CARLSON 12/24/18 Benzocaine* (Orajel Maximum*) 1 Applic Gel, 1 APPLIC BUCCAL BID, #1 TUB Prov:HATTIE OLEA PA-C 12/02/18 Alprazolam* (Xanax*) 0.25 Mg Tablet, 0.25 MG PO Q8H PRN for ANXIETY, #7 TAB Prov:HATTIE OLEA PA-C 12/02/18 Ibuprofen* (Motrin*) 600 Mg Tab, 600 MG PO Q6H PRN for PAIN AND OR ELEVATED TEMP, #30 TAB Prov:SONAL HUTTON MD 11/05/18 Naproxen* (Naprosyn*) 500 Mg Tablet, 500 MG PO BID PRN for PAIN AND/OR INFLAMMATION, #30 TAB Prov:RALPH MEAD PA-C 09/18/18 Ibuprofen* (Motrin*) 800 Mg Tab, 800 MG PO Q6H PRN for PAIN AND OR ELEVATED TEMP, #30 TAB Prov:SALVADOR CODY MD 07/17/18 Allergies Allergies: Coded Allergies: No Known Allergy (Unverified , 07/17/18) PMhx/Soc History of Surgery: Yes () Anesthesia Reaction: No Hx Neurological Disorder: No Hx Respiratory Disorders: No Hx Cardiac Disorders: No Hx Psychiatric Problems: No Hx Miscellaneous Medical Probl: Yes (Uterine Fibroids;Thyroidism) Hx Alcohol Use: No Hx Substance Use: No Hx Tobacco Use: No Smoking Status: Never smoker Physical Exam Vitals Vital Signs Date Temp Pulse Resp B/P (MAP) Pulse Ox O2 O2 Flow FiO2 Time Delivery Rate 01/19/19 98.2 61 18 116/58 99 06:32 (77) Physical Exam Const: No acute distress Head: Atraumatic Eyes: Normal Conjunctiva ENT: Normal External Ears, Nose and Mouth. Neck: Full range of motion. No meningismus. Resp: Clear to auscultation bilaterally Cardio: Regular rate and rhythm, no murmurs Abd: Soft, non tender, non distended. 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 Abdomen: Nontender External Genitalia: Normal Skin Speculum: Normal vaginal mucosa, + white cervical discharge Bimanual: No adnexal masses or tenderness, No CMT Skin: No petechiae or rashes Back: No midline or flank tenderness Ext: No cyanosis, or edema Neur: Awake and alert Psych: Normal Mood and Affect Results 24 hrs Laboratory Tests Test 01/19/19 07:04 01/19/19 07:12 Urine Color YELLOW Urine Clarity SLIGHTLY CLOUDY Urine pH 5.0 Urine Specific Marcella 1.020 Urine Ketones NEGATIVE mg/dL Urine Nitrite NEGATIVE mg/dL Urine Bilirubin NEGATIVE mg/dL Urine Urobilinogen NEGATIVE mg/dL Urine Leukocyte Esterase NEGATIVE Morenita/ul Urine Microscopic RBC 1 /HPF Urine Microscopic WBC 2 /HPF Urine Squamous Epithelial Cells FEW /HPF Urine Bacteria FEW /HPF Urine Hemoglobin 1+ mg/dL Urine Glucose NEGATIVE mg/dL Urine Total Protein NEGATIVE mg/dl POC Beta HCG, Qualitative NEGATIVE Procedures/MDM LABS & DIAGNOSTIC IMAGING: Urine: no e/o acute infection or hematuria Ucx: pending Uhcg: neg wet mount: neg PROCEDURES: PROCEDURE: US Pelvis Non-OB with endovaginal scanning and Doppler CLINICAL INDICATION: Dysuria, pain TECHNIQUE: Images were taken during real time trans pelvic and endovaginal interrogation. Color-flow and Doppler interrogation of the ovaries was performed. COMPARISON: 07/17/2018 FINDINGS: Uterus: The uterus remains anteverted and is normal in size measuring 8.9 cm in sagittal diameter and 6.3 x 4.8 cm in cross diameter. The endometrial stripe measures 7.3 mm. A partially calcified 1.5 cm in maximal diameter intramural fibroid is seen within the posterior uterine fundus. A hypodense nodule measuring 1.2 cm in maximal diameter is seen within the anterior uterine fundus compatible with an intramural fibroid. Nabothian cysts are seen in the cervix with the largest measuring 1.0 cm in maximal diameter. Ovaries: The right ovary measures 2.3 cm x 1.7 cm x 1.0 cm and appears unremarkable. The left ovary measures 3.8 x 2.9 x 2.4 cm and and contains 3 dominant follicles are simple cysts the largest of which measures 1.6 cm in maximal diameter.. Vascular flow is demonstrated in each ovary on Doppler. Adnexa: No adnexal mass is identified. Free intraperitoneal fluid: None visualized. IMPRESSION: 1. The uterus remains anteverted and normal in size with the endometrial stripe measuring 7.3 mm. 2 intramural fibroids are identified 1 within the posterior fundus which is partially calcified measuring 1.2 cm in maximal diameter, unchanged from the previous and the other located within the anterior uterine fundus measuring 1.2 cm in maximal diameter having decreased in size from the previous. Nabothian cysts are again seen in the cervix. 2. 3 dominant follicles are simple cysts are seen within the left ovary the largest of which measures 1.5 cm in maximal diameter. The right ovary appears normal. Vascular flow is again demonstrated in each ovary on Doppler. 3. No adnexal mass or free fluid is evident. MEDICAL DECISION MAKIN-year-old nontoxic afebrile female presents with painful urination. Her UA shows no evidence of infection and there is no evidence of rash, abrasions or trauma on pelvic exam. Patient requested pelvic ultrasound which reveals fibroids but otherwise unremarkable. She is hemodynamically stable, no complaints of vaginal bleeding. I discussed extensively w/ patient that fibroids are likely not the cause of her dysuria. This may be psychogenic in nature, other differentials include viral herpes vs early cystitis. I will hold off on antibiotics at this time and sent urine for culture. She is given copies of her reports and told to follow-up with her primary care provider next week. Strict return precautions were discussed. PRESCRIPTIONS: None SPECIALIST FOLLOW UP RECOMMENDED: None Departure Diagnosis: Primary Impression: Dysuria Condition: Stable Patient Instructions: Dysuria Referrals: COMM[facility]ITY CLIN[facility] YOU HAVE RECEIVED A MEDICAL SCREENING EXAM AND THE RESULTS INDICATE THAT YOU DO NOT HAVE A CONDITION THAT REQUIRES URGENT TREATMENT IN THE EMERGENCY DEPARTMENT. FURTHER EVALUATION AND TREATMENT OF YOUR CONDITION CAN WAIT UNTIL YOU ARE SEEN IN YOUR DOCTORS OFFICE WITHIN THE NEXT 1-2 DAYS. IT IS YOUR RESPONSIBILITY TO MAKE AN APPOINTMENT FOR FOLOW-UP CARE. IF YOU HAVE A PRIMARY DOCTOR --you should call your primary doctor and schedule an appointment IF YOU DO NOT HAVE A PRIMARY DOCTOR YOU CAN CALL OUR PHYSICIAN REFERRAL HOTLINE AT IF YOU CAN NOT AFFORD TO SEE A PHYSICIAN YOU CAN CHOSE FROM THE FOLLOWING [facility] [address] [facility] [address] [facility] [address] [facility] [address] [facility] [address] [facility] [facility] [address] [facility] YOU HAVE RECEIVED A MEDICAL SCREENING EXAM AND THE RESULTS INDICATE THAT YOU DO NOT HAVE A CONDITION THAT REQUIRES URGENT TREATMENT IN THE EMERGENCY DEPARTMENT. FURTHER EVALUATION AND TREATMENT OF YOUR CONDITION CAN WAIT UNTIL YOU ARE SEEN IN YOUR DOCTORS OFFICE WITHIN THE NEXT 1-2 DAYS. IT IS YOUR RESPONSIBILITY TO MAKE AN APPOINTMENT FOR FOLOW-UP CARE. IF YOU HAVE A PRIMARY DOCTOR --you should call your primary doctor and schedule and appointment IF YOU DO NOT HAVE A PRIMARY DOCTOR YOU CAN CALL OUR PHYSICIAN REFERRAL HOTLINE AT . IF YOU CAN NOT AFFORD TO SEE A PHYSICIAN YOU CAN CHOSE FROM THE FOLLOWING [facility] INSTITUTIONS: [facility] [id number] [place] [address] [facility] [address] [place] [address] [facility] [address] [place] [address] Additional Instructions: Take Copies of the ultrasound report and lab report and see her primary care doctor next week. He can return here for any worsening symptoms such as back pain, flank pain, fevers, vomiting or any other concerns. YONY ROBERTO PA-C Jan 19, 2019 10:39
[2019-01-19 10:43] VITALS: BP 119/62; PULSE 72; RESP 18
== END 2019-01-19 10:44 | disposition home or self-care (01) ==
LOC: FTE 06:29
DX: R30.0 Dysuria (principal)
CPT/HCPCS: 76830; 76856; 81001; 81025; 87086; 87210; Z7502